=== PATIENT | female | born 1940 | race Caucasian/White ===

== ENCOUNTER 2023-12-18 00:28 | Emergency (ER) | payer MEDICARE, OTHER ==
[~2023-12-18] VITALS: Ht 172.7 cm; Wt 90.9 kg
[~2023-12-18 00:28] MED LIST: COLC0.6T PO; LEVO200T38 PO; LEVO50TA53 PO; LOSA-534 PO; LOVA40TA72; METO-6 PO; MULTI VITAMIN PO; OMEPRAZOLE PO; OXYB10TA14 PO; PREDPOW63 PO; TRAZADONE PO; WARF5TAB PO
[2023-12-18 00:45] VITALS: TEMP 98.3
[2023-12-18 00:52] VITALS: PULSE 62; RESP 16; O2SAT 93
[2023-12-18 01:36] LABS: Hematocrit 35.4 % (36.0-46.0); Hemoglobin 11.5 g/dL (12.2-16.2); Mean Corpuscular Hemoglobin 29.3 pg (28.0-32.0); Mean Corpuscular Hgb Conc. 32.4 g/dL (32.0-36.0); Mean Corpuscular Volume 90.5 fL (80.0-100.0); Red Blood Cells 3.91 10^6/uL (4.0-5.20); Red Cell Distribution Width 15.7 % (11.8-14.3)
[2023-12-18 01:41] LABS: Band Neutrophils % (manual) 0; Basophils % (manual) 0 (0.0-2.0); Blast Cells 0; Eosinophils % (manual) 0 (0-7); Metamyelocytes % 0; Myelocytes % 0; Promyelocytes % 0; Reactive Lymphocytes 0
[2023-12-18 01:46] LABS: Chloride 105 mmol/L (98-107); Potassium 3.9 mmol/L (3.5-5.1); Sodium 139 mmol/L (136-145)
[2023-12-18 01:47] LABS: Anion Gap 5 (5-15); Carbon Dioxide 29 mmol/L (20-30)
[2023-12-18 01:52] LABS: Blood Urea Nitrogen 9 mg/dL (9-23); Glucose 117 mg/dL (74-106)
[2023-12-18 02:00] VITALS: BP 134/33; PULSE 65; RESP 18; O2SAT 93
[2023-12-18 02:30] LABS: Lymphocytes % (manual) 44 (10.0-50.0); Monocytes % (manual) 13 (0-12)
[2023-12-18 02:31] LABS: Platelet Estimate Adequate
== END 2023-12-18 02:30 | disposition home or self-care (01) ==
LOC: ER 00:28 → EDBD 00:28 → ER 02:30
DX: R55 Syncope and collapse (principal); I48.91 Unspecified atrial fibrillation; I10 Essential (primary) hypertension; E78.5 Hyperlipidemia, unspecified; Z90.710 Acquired absence of both cervix and uterus
CPT/HCPCS: 36415; 80048; 85007; 85027; 93005

== ENCOUNTER 2024-03-08 09:13 | Emergency (ER) | payer OTHER ==
[~2024-03-08] VITALS: Ht 175.3 cm; Wt 86.3 kg
[2024-03-08 10:39] VITALS: PULSE 77; RESP 16; O2SAT 96
[2024-03-08 11:04] LABS: Basophils # (auto) 0 10 ^3/uL (0-0.2); Basophils % (auto) 0.4 % (0.0-2.0); Eosinophils # (auto) 0.1 10 ^3/uL (0-0.8); Eosinophils % (auto) 2.4 % (0.0-7.0); Hematocrit 34.2 % (36.0-46.0); Hemoglobin 11.3 g/dL (12.2-16.2); Lymphocytes % (auto) 19.7 % (10.0-50.0); Mean Corpuscular Hgb Conc. 33.1 g/dL (32.0-36.0); Mean Corpuscular Volume 87.5 fL (80.0-100.0); Monocytes # (auto) 0.8 10 ^3/uL (0-1.3); Monocytes % (auto) 15.7 % (0.0-12.0); Neutrophils # (auto) 3.3 10 ^3/uL (1.6-8.6); Neutrophils % (auto) 61.8 % (37.0-80.0); Nucleated Red Blood Cells % 0.2 %; Red Blood Cells 3.92 10^6/uL (4.0-5.20); White Blood Cell 5.3 10^3/uL (4.4-10.8)
[2024-03-08 11:21] LABS: Albumin 3.4 g/dL (3.2-4.8); Alkaline Phosphatase 63 U/L (46-116); Anion Gap 5 (5-15); Aspartate Aminotransferase 14 U/L (13-40); BUN/Creatinine Ratio 10.7 (10.0-20.0); Bilirubin, Total 0.6 mg/dL (0.2-1.0); Blood Urea Nitrogen 8 mg/dL (9-23); Calcium 8.8 mg/dL (8.7-10.4); Carbon Dioxide 28 mmol/L (20-30); Chloride 107 mmol/L (98-107); Glucose 99 mg/dL (74-106); Potassium 3.5 mmol/L (3.5-5.1); Sodium 140 mmol/L (136-145); Total Protein 6.2 g/dL (5.7-8.2)
[2024-03-08 11:24] LABS: Alanine Aminotransferase < 9 U/L (7-40)
[2024-03-08 11:26] LABS: Urine Bacteria None Seen /hpf (None Seen)
[2024-03-08 11:44] LABS: Urine Blood Negative /uL (Negative); Urine Clarity Turbid (Clear); Urine Color Yellow (Yellow); Urine Protein, UAD TRACE (Negative); Urine Specific Gravity 1.013 (1.001-1.035); Urine Urobilinogen Normal (Negative); Urine WBC 41 /hpf (0 - 5)
[2024-03-08 11:49] LABS: INR 3.28 (0.9-1.15); Partial Thromboplastin Time 42.4 SEC (24.5-34.5); Prothrombin Time 31.8 sec (9.3-11.8)
[2024-03-08] MEDS: cefTRIAXone 1GM/50ML D5W 50 ML IV ONE (12:51)
[2024-03-08] MEDS: FUROSEMIDE 40 MG/4 ML VIAL IV ONE (15:18)
[2024-03-08 20:00] VITALS: PULSE 86; RESP 19; O2SAT 97
[2024-03-08 21:03] VITALS: BP 137/53; PULSE 79; RESP 17; TEMP 97.4; O2SAT 92
== END 2024-03-08 21:08 | disposition home or self-care (01) ==
LOC: EDBD 09:13 → ER 09:17
DX: N39.0 Urinary tract infection, site not specified (principal); R53.1 Weakness; I10 Essential (primary) hypertension; E78.5 Hyperlipidemia, unspecified; Z90.710 Acquired absence of both cervix and uterus; Z79.899 Other long term (current) drug therapy
CPT/HCPCS: 36415; 71045; 80053; 81001; 82962; 83605; 83735; 83880; 84484; 85025; 85379; 85610; 85730; 87086; 93005; 93970; 96365; 96375; 99285; J0696; J1940

== ENCOUNTER 2024-03-13 19:10 | Emergency (ER) | payer OTHER ==
[~2024-03-13] VITALS: Ht 165.1 cm; Wt 113.4 kg
[2024-03-13] MEDS: HYDROcodone-ACET 10/325MG TAB PO ONE (22:52)
[2024-03-13 22:55] VITALS: PULSE 78; RESP 16; O2SAT 96
[2024-03-13 23:25] VITALS: O2SAT 94
[2024-03-13 23:43] LABS: Basophils # (auto) 0 10 ^3/uL (0-0.2); Basophils % (auto) 0.2 % (0.0-2.0); Eosinophils # (auto) 0.1 10 ^3/uL (0-0.8); Eosinophils % (auto) 0.6 % (0.0-7.0); Hematocrit 39.1 % (36.0-46.0); Hemoglobin 12.8 g/dL (12.2-16.2); Lymphocytes % (auto) 10.3 % (10.0-50.0); Mean Corpuscular Hemoglobin 28.3 pg (28.0-32.0); Mean Corpuscular Hgb Conc. 32.7 g/dL (32.0-36.0); Mean Corpuscular Volume 86.5 fL (80.0-100.0); Neutrophils # (auto) 7.6 10 ^3/uL (1.6-8.6); Neutrophils % (auto) 78.9 % (37.0-80.0); Red Blood Cells 4.52 10^6/uL (4.0-5.20); Red Cell Distribution Width 17.3 % (11.8-14.3); White Blood Cell 9.6 10^3/uL (4.4-10.8)
[2024-03-13 23:55] LABS: Alanine Aminotransferase 16 U/L (7-40); Albumin 4.2 g/dL (3.2-4.8); Alkaline Phosphatase 71 U/L (46-116); Anion Gap 12 (5-15); Aspartate Aminotransferase 25 U/L (13-40); Bilirubin, Total 0.9 mg/dL (0.2-1.0); Blood Urea Nitrogen 16 mg/dL (9-23); Calcium 9.6 mg/dL (8.7-10.4); Carbon Dioxide 28 mmol/L (20-30); Chloride 98 mmol/L (98-107); Glucose 135 mg/dL (74-106); Potassium 3.6 mmol/L (3.5-5.1); Sodium 138 mmol/L (136-145); Total Protein 7.8 g/dL (5.7-8.2)
[2024-03-14 00:28] LABS: INR 2.77 (0.9-1.15); Partial Thromboplastin Time 38.6 SEC (24.5-34.5); Prothrombin Time 27.2 sec (9.3-11.8)
[2024-03-14 07:30] VITALS: PULSE 83; RESP 14; O2SAT 95
[2024-03-14 09:27] VITALS: BP 137/60; PULSE 74; RESP 21; TEMP 98.3; O2SAT 94
== END 2024-03-14 09:52 | disposition short-term general hospital (02) ==
LOC: EDBD 19:10 → ER 19:10
DX: S82.191A Other fracture of upper end of right tibia, initial encounter for closed fracture (principal); I10 Essential (primary) hypertension; I48.91 Unspecified atrial fibrillation; J44.9 Chronic obstructive pulmonary disease, unspecified; E78.5 Hyperlipidemia, unspecified; E03.9 Hypothyroidism, unspecified; Z85.9 Personal history of malignant neoplasm, unspecified; Z98.890 Other specified postprocedural states; Z79.899 Other long term (current) drug therapy; W18.39XA Other fall on same level, initial encounter; Y93.89 Activity, other specified; Y92.89 Other specified places as the place of occurrence of the external cause; Y99.8 Other external cause status
CPT/HCPCS: 36415; 73700; 80053; 85025; 85610; 85730